=== PATIENT | female | born 1985 | race Caucasian/White ===

== ENCOUNTER 2017-07-31 16:42 | Outpatient (CLI) | payer BC | END 2017-07-31 16:43 | disposition home or self-care (01) | LOC: BICRAD 16:42 | PROVIDERS: ATTEND Family Medicine | DX: M25.531 Pain in right wrist (principal) ==

== ENCOUNTER 2017-11-23 10:28 | Outpatient (CLI) | payer BC ==
--- NOTE | 2017-11-23 12:44 | ULT ---
ULTRASOUND ABDOMEN: History: Right upper quadrant pain. Comparison: 2013 Technique: Real-time grayscale color doppler and spectral analysis of the abdomen performed. FINDINGS: Visualized portions of the aorta, IVC and pancreas are unremarkable. The liver measures 16.6 cm in le ngth. Portal vein is patent. Antegrade flow. Normal phasicity. Splenic echotexture is normal. The gallbladder wall thickness is normal. No pericholecystic fluid. Co mmon bile duct is normal. Portal vein is patent. The right kidney measures 10.2 x 4.8 x 4.5 cm and left kidney measures 12.3 x 6.4 x 6.5 cm. No renal mass, hydronephrosis, or abnormal calcifications. Spleen measures 11.4 cm in length. Quintanilla's sign is negative. IMPRESSION: Normal exam. POS: HEMANT
== END 2017-11-23 10:29 | disposition home or self-care (01) ==
LOC: SCSULT 10:28
PROVIDERS: ATTEND Physician Assistant
DX: R10.11 Right upper quadrant pain (principal)
CPT/HCPCS: 36415; 76700; 80053; 84443; 85025

== ENCOUNTER 2018-12-03 07:07 | Outpatient (CLI) | payer BC ==
[2018-12-03 10:48] LABS: #Basophils 0.1 thou/uL (0.0-0.2); #Eosinphils 0.2 thou/uL (0.0-0.7); #Lymphocytes 3.3 thou/uL (1.20-3.40); #Monocytes 0.6 thou/uL (0.11-0.59); #Neutrophils 4.3 thou/uL (1.40-6.50); %Basophils 0.8 % (0.0-1.0); %Eosinophils 1.9 % (0.0-10.0); %Lymphocytes 38.6 % (21.0-51.0); %Monocytes 7.4 % (0.0-10.0); %Neutrophils 51.2 % (42.0-75.0); Hemoglobin 14.7 g/dL (12.0-16.0); Mean Corpuscular HGB CONC 35.4 g/dL (32.0-36.0); Mean Corpuscular Hemoglobin 32.2 pg (27.0-31.0); Mean Corpuscular Volume 90.9 fL (78.0-98.0); Mean Platelet Volume 6.8 fL (7.4-10.4); Platelet Count 320 thou/uL (130-400); RBC Distribution Width 11.5 % (11.5-14.5); Red Blood Cell (RBC) Count 4.58 mill/uL (4.20-5.40); White Blood Cell (WBC) Count 8.5 thou/uL (4.8-10.8)
[2018-12-03 10:52] LABS: BHCG - Serum Negative (NEGATIVE); Pregs Control Background? CLEAR/WHITE (CLR/WHITE); Pregs Control Bar Appear? YES (CONTROL BAR)
[2018-12-03 10:59] LABS: Anion Gap 12 mmol/L (10-20); BUN (Urea Nitrogen) 11 mg/dL (7.0-18.7); Calc. Creatinine Clearance 0 mL/min (70-130); Calcium 9.4 mg/dL (7.8-10.44); Carbon Dioxide 25 mmol/L (22-29); Chloride 104 mmol/L (98-107); Estimated GFR-MDRD 79; Glucose 83 mg/dL (70-105); Potassium 4.2 mmol/L (3.5-5.1); Sodium 137 mmol/L (136-145)
== END 2018-12-03 07:08 | disposition home or self-care (01) ==
LOC: LABBT 07:07
PROVIDERS: ATTEND Specialist
DX: Z01.812 Encounter for preprocedural laboratory examination (principal); D49.2 Neoplasm of unspecified behavior of bone, soft tissue, and skin; R19.09 Other intra-abdominal and pelvic swelling, mass and lump
CPT/HCPCS: 80048; 84703; 85025

== ENCOUNTER 2018-12-07 07:10 | Day surgery (SDC) | payer BC ==
[2018-12-03 10:13] VITALS: BMI 34.3
[2018-12-07] MEDS ORDERED: Ketorolac Tromethamine 30 MG/ML VIAL ONE (07:37)
[2018-12-07] MEDS ORDERED: Bupivacaine/Epinephrine 0.25% 30 ML VIAL ONE (09:13)
[2018-12-07] MEDS ORDERED: Midazolam HCl 2 mg/2 ml Vial ONE ×2 (09:13→09:17)
[2018-12-07] MEDS ORDERED: Sodium Bicarbonate 2.5 MEQ/5 ML VIAL ONE (09:13)
[2018-12-07] MEDS ORDERED: Fentanyl 100 MCG/2 ML VIAL ONE (09:13)
[2018-12-07] MEDS ORDERED: Lidocaine 2% Jelly 5 ML TUBE ONE (09:14)
[2018-12-07] MEDS ORDERED: HYDROmorphone 0.5 MG/0.5 ML SYRINGE ONE (09:14)
[2018-12-07] MEDS ORDERED: Promethazine HCl 25 MG/ML VIAL ONE (11:38)
[2018-12-07] MEDS ORDERED: PROPOFOL 200 MG/20 ML VIAL ONE (15:18)
[2018-12-07] MEDS ORDERED: Ondansetron PF 4 MG/2 ML Vial ONE (15:18)
[2018-12-07] MEDS ORDERED: Rocuronium Bromide 10 MG/ML (10ML VIAL) ONE (15:18)
[2018-12-07] MEDS ORDERED: Dexamethasone 20 MG/5 ML VIAL ONE (15:18)
[2018-12-07] MEDS ORDERED: Lidocaine 1% PF 5 ML VIAL ONE (15:18)
--- NOTE | 2018-12-08 09:24 | OP ---
DATE OF PROCEDURE: 12/07/2018 PREOPERATIVE DIAGNOSES: Umbilical tumor and left anterior shoulder soft tissue tumor. POSTOPERATIVE DIAGNOSES: Umbilical tumor and left anterior shoulder soft tissue tumor. PROCEDURE PERFORMED: Excision of umbilical tumor with fascial closure, excision of 6 cm left shoulder lipoma. ANESTHESIA: General endotracheal. INDICATIONS: The patient is a 33-year-old white female. She presents with a lesion at her umbilicus that is pigmented and nodular, and she tells me it bleeds occasionally. She was taken to the operating at this time for excision of this. The possibility of this being a urachal remnant was entertained with plans to follow it down to its base and excise the entire lesion. Additionally, she has a soft tissue tumor that is visible and palpable on her left anterior shoulder and is at least 6 cm in diameter. I recommend excision of this under the same anesthetic. DESCRIPTION OF PROCEDURE: Informed consent was obtained. The patient was taken to the operating room, where general anesthesia was obtained with the patient in supine position. Abdomen and left anterior shoulder were prepped with ChloraPrep and draped in sterile fashion. Attention was turned first to the umbilicus. Local anesthetic was infiltrated circumferentially using 0.25% Marcaine with epinephrine. An elliptical incision was created to the right side of the umbilicus, where the lesion was located, but also carried infraumbilical. Dissection was carefully carried through the skin and subcutaneous tissue and carried around the lesion taking care to remove the lesion intact. The dissection was carried down to the level of the fascia, and at the point that the lesion was completely removed, there was clear fascial defect. It was removed intact and it did not extend down into the preperitoneal space. This was passed off the field as a specimen. The soft tissue over the fascia was mobilized gently and the fascia was closed with a series of interrupted sutures of #1 PDS. The wound was carefully irrigated and all irrigant was aspirated. The wound was closed in layers with 3-0 and 4-0 Monocryl, and Dermabond was placed externally. Attention was turned to the left chest. The visible and palpable mass was locally anesthetized circumferentially. An oblique incision was created anterior to the left shoulder over the lesion. Dissection was carried through skin and subcutaneous tissue, and the mass was carefully dissected circumferentially such that it was removed intact. It was passed off the field. I excised some skin edges that were undermined. Meticulous hemostasis was obtained within the wound. It was closed in layers with 3-0 and 4-0 Monocryl so as to obliterate the space and approximate the skin edges. Dermabond was placed externally. There were no complications. The patient tolerated the procedure well was taken to the recovery room in stable condition. Job ID: [id number]
== END 2018-12-07 13:40 | disposition home or self-care (01) ==
LOC: SDC 07:10
PROVIDERS: ATTEND Specialist
PROC: 0JBF0ZZ Excision of Left Upper Arm Subcutaneous Tissue and Fascia, Open Approach (ICD-10-PCS; principal; 2018-12-07)
PROC: 0JB80ZZ Excision of Abdomen Subcutaneous Tissue and Fascia, Open Approach (ICD-10-PCS; principal; 2018-12-07)
DX: D17.22 Benign lipomatous neoplasm of skin and subcutaneous tissue of left arm (principal); N80.8 Other endometriosis; Z88.1 Allergy status to other antibiotic agents
CPT/HCPCS: 88304; 88305; J0131; J0690; J1100; J1170; J1885; J2001; J2250; J2405; J2550; J2704; J3010

== ENCOUNTER 2019-01-13 02:09 | Emergency (ER) | payer BC ==
[2019-01-13] MEDS ORDERED: Ondansetron ODT 4 MG TAB ONE (02:21)
== END 2019-01-13 03:25 | disposition home or self-care (01) ==
LOC: SCSER 02:09
DX: R11.2 Nausea with vomiting, unspecified (principal); E78.5 Hyperlipidemia, unspecified; E78.00 Pure hypercholesterolemia, unspecified
CPT/HCPCS: 99283; Q0162

== ENCOUNTER 2019-07-01 22:42 | Day surgery (SDC) | payer BC ==
[2019-07-01 23:00] VITALS: BMI 36.8
[2019-07-01] MEDS ORDERED: hydrALAZINE 20 MG/ML VIAL SLOW IVP PRN (23:29)
--- NOTE | 2019-07-02 00:06 | HP ---
TIME OF EVALUATION: About 2315 hours. LOCATION: Antepartum bed 2. This is a patient of Dr. Esparza. I have seen and evaluated the patient at bedside. CHIEF COMPLAINT: Possible elevated blood pressure with a home blood pressure reading. HISTORY OF PRESENT ILLNESS: This is a 33-year-old , G4, P2 with 2 previous vaginal deliveries, one previous miscarriage, who has a due date of October 04 puts her at 26 weeks . She states that she took her blood pressure at home and it was elevated, first time it was about 148/70 to 80 or so and then, she got another value with a systolic of 160. She states that she just felt anxious and decided to come in. She denies contractions, vaginal bleeding, or leakage of fluid. She has had some headaches on and off, but no visual changes. REVIEW OF SYSTEMS: Complete review of systems was checked and is otherwise negative unless specified in the HPI. PAST MEDICAL HISTORY: Positive only for anxiety and depression, but she is not on any medication. MEDICATIONS: 1. vitamins. 2. Atarax for a skin rash. 3. Tylenol. ALLERGIES: TO TETRACYCLINE AND ERYTHROMYCIN. OB HISTORY: She has had previous vaginal deliveries x2 and one miscarriage. SOCIAL HISTORY: Noncontributory. PHYSICAL EXAMINATION: GENERAL: She is in no acute distress. VITAL SIGNS: Blood pressure here is 122/74, pulse is 77, and temperature is 98.4. ABDOMEN: Soft and nontender. There are no palpable contractions. PELVIC: Deferred, but there was no gross evidence of bleeding or leakage of fluid. In terms of the heart tracing, the tracing shows a baseline of about 150 with moderate variability, but again she is 26 weeks, which was reactive for the gestational age. There is no contractions noted on tocodynamometer. INTERVENTIONS ORDERED: I have ordered serial blood pressures and CMP, CBC, and urine protein and creatinine ratio. ASSESSMENT: This is a 33-year-old G4, P2, at 26 weeks with elevated blood pressure at home by a self read. She does have a headache now. PLAN: I will do serial blood pressures and check a CMP, CBC, and urine protein and urine creatinine ratio. Although, she has a headache, headache can be nonspecific and at 26 weeks, we would err on the side of conservative management. Her blood pressure also was normal here. I have seen the patient at bedside, we will do her lab check and follow up from there. Job ID: [id number]
[2019-07-02 00:34] LABS: #Eosinphils 0.2 thou/uL (0.0-0.7); #Lymphocytes 3.6 thou/uL (1.20-3.40); #Monocytes 0.9 thou/uL (0.11-0.59); #Neutrophils 7.2 thou/uL (1.40-6.50); %Basophils 0.4 % (0.0-1.0); %Eosinophils 1.5 % (0.0-10.0); %Lymphocytes 30.2 % (21.0-51.0); %Monocytes 7.8 % (0.0-10.0); Hemoglobin 11.2 g/dL (12.0-16.0); Mean Corpuscular HGB CONC 35.2 g/dL (32.0-36.0); Mean Corpuscular Hemoglobin 33.5 pg (27.0-31.0); Mean Platelet Volume 6.9 fL (7.4-10.4); Platelet Count 239 thou/uL (130-400); RBC Distribution Width 12.4 % (11.5-14.5); Red Blood Cell (RBC) Count 3.34 mill/uL (4.20-5.40); White Blood Cell (WBC) Count 11.9 thou/uL (4.8-10.8)
--- NOTE | 2019-07-02 00:48 | PDOC.EVN ---
Event Note - Event Note Event Note: BPs are 120/70-80s CBC is wnl CMP pending
[2019-07-02 00:58] LABS: ALT (SGPT) 8 U/L (8-55); AST (SGOT) 11 U/L (5-34); Albumin 3.3 g/dL (3.5-5.0); Alkaline Phosphatase 38 U/L (40-110); Anion Gap 10 mmol/L (10-20); BUN (Urea Nitrogen) 6 mg/dL (7.0-18.7); Bilirubin, Total Less than 0.2 mg/dL (0.2-1.2); Calc. Creatinine Clearance 173 mL/min (70-130); Calcium 9.3 mg/dL (7.8-10.44); Carbon Dioxide 26 mmol/L (22-29); Chloride 105 mmol/L (98-107); Estimated GFR-MDRD Greater than 90; Globulin 2.7 g/dL (2.4-3.5); Glucose 82 mg/dL (70-105); Potassium 3.4 mmol/L (3.5-5.1); Sodium 138 mmol/L (136-145)
[2019-07-02 01:30] LABS: Creatinine, Urine 59.44 mg/dL (47-110); Protein, Urine Random Quant Less than 10 mg/dL (1-14)
--- NOTE | 2019-07-02 01:50 | PDOC.EVN ---
Event Note - Event Note Event Note: BPs normal./ Labs ok. Will give reglan and benadrrl for possible atypical migraine at this point.
[2019-07-02] MEDS ORDERED: Metoclopramide 10 MG/10 ML UDCUP PO SCH (02:00)
[2019-07-02] MEDS ORDERED: diphenhydrAMINE 25 MG CAP PO SCH (02:00)
== END 2019-07-02 02:10 | disposition home or self-care (01) ==
LOC: L&D/OP 22:42
PROVIDERS: ATTEND Obstetrics & Gynecology
DX: O99.89 Other specified diseases and conditions complicating pregnancy, childbirth and the puerperium (principal); R03.0 Elevated blood-pressure reading, without diagnosis of hypertension; R51 Headache; O09.522 Supervision of elderly multigravida, second trimester; Z3A.26 26 weeks gestation of pregnancy; Z88.1 Allergy status to other antibiotic agents; Z88.8 Allergy status to other drugs, medicaments and biological substances
CPT/HCPCS: 36415; 80053; 82570; 84156; 85025; 99284; Q0163

== ENCOUNTER 2021-10-02 16:14 | Emergency (ER) | payer BC, SELFPAY ==
[~2021-10-02 16:14] MED LIST: ISOVUE-370 76%-LOCM 1 ML ONE
[2021-10-02 16:42] LABS: #Eosinphils 0.1 thou/uL (0.0-0.7); #Lymphocytes 1.5 thou/uL (1.20-3.40); #Monocytes 0.5 thou/uL (0.11-0.59); #Neutrophils 9.9 thou/uL (1.40-6.50); %Basophils 0.1 % (0.0-1.0); %Eosinophils 0.7 % (0.0-10.0); %Lymphocytes 12.5 % (21.0-51.0); %Monocytes 4.1 % (0.0-10.0); %Neutrophils 82.6 % (42.0-75.0); Hemoglobin 15.5 g/dL (12.0-16.0); Mean Corpuscular HGB CONC 34.7 g/dL (32.0-36.0); Mean Corpuscular Hemoglobin 31.8 pg (27.0-31.0); Mean Corpuscular Volume 91.8 fL (78.0-98.0); Mean Platelet Volume 7.2 fL (7.4-10.4); Platelet Count 264 thou/uL (130-400); RBC Distribution Width 12.4 % (11.5-14.5); Red Blood Cell (RBC) Count 4.87 mill/uL (4.20-5.40)
[2021-10-02] MEDS ORDERED: Morphine 4 MG/ML VIAL ONE ×2 (16:57→18:59)
[2021-10-02] MEDS ORDERED: Ketorolac Tromethamine 30 MG/ML VIAL ONE (16:57)
[2021-10-02] MEDS ORDERED: Ondansetron PF 4 MG/2 ML Vial ONE (16:57)
[2021-10-02] MEDS ORDERED: Piperacillin/Tazobactam 4.5 GM VIAL ONE (16:57)
[2021-10-02 17:08] LABS: ALT (SGPT) 14 U/L (8-55); AST (SGOT) 14 U/L (5-34); Albumin 4.5 g/dL (3.5-5.0); Alkaline Phosphatase 58 U/L (40-110); Anion Gap 15 mmol/L (10-20); BUN (Urea Nitrogen) 14 mg/dL (7.0-18.7); Calc. Creatinine Clearance 0 mL/min (70-130); Calcium 9.4 mg/dL (7.8-10.44); Carbon Dioxide 22 mmol/L (22-29); Chloride 103 mmol/L (98-107); Estimated GFR 92; Globulin 3.5 g/dL (2.4-3.5); Glucose 92 mg/dL (70-105); Potassium 3.5 mmol/L (3.5-5.1); Sodium 136 mmol/L (136-145)
[2021-10-02 17:15] LABS: BHCG - Serum Negative (NEGATIVE); Pregs Control Background? CLEAR/WHITE (CLR/WHITE); Pregs Control Bar Appear? YES (CONTROL BAR)
[2021-10-02 17:55] LABS: Bilirubin Negative (Negative); Blood, Urine Negative (Negative); Clarity Clear (Clear); Glucose, Urine (Dipstick) Normal (Negative); Ketone, Urine 10 mg/dL (Negative); Leukocyte Negative Leu/uL (Negative); Nitrite Negative (Negative); Protein, Urine (Dipstick) Negative (Neg-Trace); Specific Gravity, Urine 1.012 (1.002-1.036); Urobilinogen Normal mg/dL (Less than 2)
[2021-10-02 19:13] LABS: SARS-CoV-2 NAA Rapid Test Not Detected (NotDetected)
[2021-10-02] MEDS ORDERED: Lidocaine Viscous Sol 2% 15 ml UD Cup ONE (20:50)
[2021-10-02] MEDS ORDERED: Mag-Al 1200 mg/1200 mg/30 ML UDCUP ONE (20:50)
[2021-10-02] MEDS ORDERED: Famotidine/PF 20 mg/2ml Vial ONE (20:50)
[2021-10-02] MEDS ORDERED: Fentanyl 100 MCG/2 ML VIAL ONE (20:50)
[2021-10-02] MEDS ORDERED: Acetaminophen 500 MG TAB ONE (21:56)
== END 2021-10-02 23:20 | disposition home or self-care (01) ==
LOC: ERS 16:14
DX: R10.13 Epigastric pain (principal); R11.2 Nausea with vomiting, unspecified; R10.816 Epigastric abdominal tenderness; E78.5 Hyperlipidemia, unspecified; E78.00 Pure hypercholesterolemia, unspecified; Z20.822 Contact with and (suspected) exposure to COVID-19
CPT/HCPCS: 74177; 76705; 80053; 81003; 83605; 83690; 84703; 85025; 87040; 87086; 93005; 96361; 96365; 96375; 96376; J1885; J2270; J2405; J2543; J3010; Q9966; S0028; U0002

== ENCOUNTER 2021-11-04 08:09 | Outpatient (CLI) | payer BC ==
[2021-11-04 09:00] LABS: #Eosinphils 0.2 10x3/uL (0.0-0.5); #Monocytes 0.6 10x3/uL (0.0-1.1); #Neutrophils 3.6 10x3/uL (1.5-8.4); %Basophils 0.6 % (0.0-2.0); %Eosinophils 2.7 % (0.0-6.0); %Lymphocytes 35.3 % (18.0-47.0); %Monocytes 8.3 % (0.0-10.0); %Neutrophils 52.8 % (40.0-75.0); Hemoglobin 13.5 g/dL (12.0-15.5); Mean Corpuscular HGB CONC 33.8 g/dL (32.0-36.0); Mean Corpuscular Volume 88.9 fl (81.6-98.3); Mean Platelet Volume 9.3 fl (7.4-10.4); Platelet Count 302 10x3/uL (150-450); RBC Distribution Width 12.5 % (11.5-14.5); White Blood Cell (WBC) Count 6.8 10x3/uL (3.5-10.5)
[2021-11-04 09:21] LABS: ALT (SGPT) 15 U/L (8-55); AST (SGOT) 14 U/L (5-34); Albumin 4.2 g/dL (3.5-5.0); Alkaline Phosphatase 53 U/L (40-110); Anion Gap 14 mmol/L (10-20); BUN (Urea Nitrogen) 13 mg/dL (7.0-18.7); Bilirubin, Total 0.5 mg/dL (0.2-1.2); Calc. Creatinine Clearance 0 mL/min (70-130); Calcium 9.2 mg/dL (7.8-10.44); Carbon Dioxide 23 mmol/L (22-29); Chloride 108 mmol/L (98-107); Estimated GFR 101; Globulin 3.1 g/dL (2.4-3.5); Glucose 90 mg/dL (70-105); Protein, Total 7.3 g/dL (6.0-8.3); Sodium 141 mmol/L (136-145)
== END 2021-11-04 08:10 | disposition home or self-care (01) ==
LOC: LABBT 08:09
PROVIDERS: ATTEND Specialist
DX: Z01.812 Encounter for preprocedural laboratory examination (principal); K80.20 Calculus of gallbladder without cholecystitis without obstruction; Z20.822 Contact with and (suspected) exposure to COVID-19
CPT/HCPCS: 80053; 85025; 87811

== ENCOUNTER 2021-11-28 09:46 | Day surgery (SDC) | payer BC ==
[2021-11-26 09:57] VITALS: BMI 33.9
[2021-11-28] MEDS ORDERED: Ketorolac Tromethamine 30 MG/ML VIAL ONE (10:21)
[2021-11-28] MEDS ORDERED: Acetaminophen 500 MG TAB ONE (10:21)
[2021-11-28] MEDS ORDERED: Bupivacaine/Epinephrine 0.25% 30 ML VIAL ONE (13:18)
[2021-11-28] MEDS ORDERED: fentaNYL Citrate/PF 100 MCG/2 ML SYRINGE ONE (13:20)
[2021-11-28] MEDS ORDERED: Promethazine HCl 25 MG/ML VIAL ONE (13:21)
[2021-11-28] MEDS ORDERED: CEFAZOLIN 2 GM VIAL ONE (13:25)
[2021-11-28] MEDS ORDERED: Sodium Chloride 0.9% 100 ML ONE (13:25)
[2021-11-28] MEDS ORDERED: Neostigmine Methylsulfate 3 MG/3 ML SYRINGE ONE (13:32)
[2021-11-28] MEDS ORDERED: Glycopyrrolate 0.2 MG/ML 5 ML SYRINGE ONE (13:32)
[2021-11-28] MEDS ORDERED: Ondansetron PF 4 MG/2 ML Vial ONE ×2 (13:32→14:50)
[2021-11-28] MEDS ORDERED: Dexamethasone 20 MG/5 ML VIAL ONE (13:32)
[2021-11-28] MEDS ORDERED: PROPOFOL 200 MG/20 ML VIAL ONE (13:32)
[2021-11-28] MEDS ORDERED: Lidocaine 1% MPF 2 ML VIAL ONE (13:32)
[2021-11-28] MEDS ORDERED: Rocuronium Bromide 10 MG/ML (10ML VIAL) ONE (13:32)
[2021-11-28] MEDS ORDERED: Metoclopramide HCl 10 MG/2 ML VIAL ONE (13:32)
== END 2021-11-28 16:12 | disposition home or self-care (01) ==
LOC: SDC 09:46
PROVIDERS: ATTEND Specialist
PROC: 0FT44ZZ Resection of Gallbladder, Percutaneous Endoscopic Approach (ICD-10-PCS; principal; 2021-11-28)
DX: K81.1 Chronic cholecystitis (principal); K82.8 Other specified diseases of gallbladder; D89.89 Other specified disorders involving the immune mechanism, not elsewhere classified; Z79.899 Other long term (current) drug therapy; Z88.1 Allergy status to other antibiotic agents
CPT/HCPCS: 88304; C1713; J0690; J1885; J2405; J2550; J3490